=== PATIENT | female | born 1940 | race Caucasian/White ===

== ENCOUNTER 2017-08-10 19:18 | Inpatient (IN) | payer MEDICARE, BC ==
[~2017-08-10] VITALS: Ht 170.2 cm; Wt 77.1 kg
[~2017-08-10 19:18] MED LIST: GLUCOSAMINE1000 MG PO; LEVOTHYROXINE100 MCG PO; LEVOTHYROXINE25 MCG PO; LEXAPRO10 MG PO; MIRAPEX0.75 MG PO; MOBIC7.5 MG PO; MULTI-DAY VITA1 EACH PO; NORCO 5-325 TA1 EACH PO
[2017-08-10] MEDS ORDERED: NORCO 5-325 TA1 EACH PO (20:38)
--- NOTE | 2017-08-10 22:14 | NUR ---
PATIENT ARRIVED TO THE FLOOR VIA STRETCHER. PATIENT TRANSFERRED TO BED ASSISTED BY STAFF. PATIENT TOLERATED ACTIVITY WELL. PATIENT ORIENTED TO UNIT AND FLOOR. PATIENT TAUGHT HOW TO USE CALL LIGHT. PATIENTS SON MIGUEL ASSISTED [facility] AND ADMISSION DATA. PATIENT DENIES ANY PAIN OR NAUSEA AT THIS TIME. PATIENT HOWEVER FALLS ASLEEP VERY EASILY. PATIENT PLACED ON PULSE OX FOR MONITORING. PATIENT DENIES ANY NEEDS. CALL LIGHT IN REACH. SON HAS LEFT FOR THE EVENING.
--- NOTE | 2017-08-10 23:28 | NUR ---
PATIENT IS RESTING IN BED WITH EYES CLOSED. PULSE OX READINGS ARE WNL. CALL LIGHT IN REACH.
--- NOTE | 2017-08-11 00:05 | NUR ---
PT CALLED AND NEEDED TO USE THE BATHROOM, UP WITH 1-PA AND CANE TO [facility]. VOIDED AND THEN RETURNED TO BED WITH ASSISTANCE. PT REPORTS THAT WITH MOVEMENT, PAIN IN LEFT SHOULDER HAS INCREASED TO 7/10, PRN OXYCODONE ADMINISTERED. ICE PACKS PROVIDED FOR COMFORT. PT DENIES FURTHER REQUESTS AT THIS TIME.
--- NOTE | 2017-08-11 00:58 | NUR ---
RECEIVED REPORT FROM SOFTWARE VALIDATION TECHNICIAN AT 0055. FOUND PT IN BED SLEEPING.
--- NOTE | 2017-08-11 01:56 | NUR ---
NETWORKS SOFTWARE CONSULTANT AND I ASSISTED PT TO BSC BECAUSE SHE REFUSED THE BED MOORE. PT IS VERY UNSTADY ON HER FEET AND IS STILL VERY SEDATED. O2 SATS ARE WDL ON ROOM AIR, ALL LOBES ARE CLEAR BUT HER BREATHING IS SHALLOW AT THIS TIME. LEFT RADIAL PULSE IS +2 NO EDEMA NOTED ON LEFT ARM. HOWEVER, VIEW IS OBSTRUCTED BY HER SLING TO SOME EXTENT. PT IS ABLE TO MOVE HER FINGERS. PT NOW IS BACK IN BED SLEEPING. WILL CONTINUE TO MONITOR
--- NOTE | 2017-08-11 02:57 | NUR ---
LR IV FLUIDS ARE STARTED. PT IS SLEEPING AGAIN.
--- NOTE | 2017-08-11 06:30 | NUR ---
PT UPON ARRIVAL WAS VERY DROWSY DUE TO PAIN MEDS GIVEN. PT ALSO HAD LOW URINE OUTPUT WELL. PT RECEIVED AND IS STILL RECEIVEING 1000ML LR AT 100ML/HR. URINE OUTPUT HAS INCREASED SINCE AND PT HAS BECOME MORE ALERT AND ORIENTED. FINGERS ON LEFT ARM ARE WARM TO TOUCH AND RADIAL PULSE IS +2.
--- NOTE | 2017-08-11 07:55 | NUR ---
PT USED BEDSIDE COMMODE, THEN RETURNED TO BE IS NOW RESTING SAFELY WITH CALL LIGHT IN REACH.
--- NOTE | 2017-08-11 08:00 | NUR ---
PATIENT IS AWAKE. ORDERED BREAKFAST. CALLED DR. GEE FOR PAIN CONTROL, PATIENT HAD PAIN MEDICAITON EARLIER THIS MORNING, NEW ORDERED TO ADMINISTERED ANOTHER TAB OF NORCO. DR. GEE NOW IN ROOM ROUNDING.
--- NOTE | 2017-08-11 10:38 | NUR ---
PT IS RESTING IN BED SAFELY WITH CLL LIGHT IN REACH. KNEE HIGH JULIA HOSE WERE PUT ON INSTRUCYED BY THE NURSE. PT ASKED FOR MORE ICE WATER
--- NOTE | 2017-08-11 11:30 | NUR ---
ASSISTED PT TO BEDSIDE COMMODE AND THEN BACK TO BED. PT IS NOW RESTING IN BED SAFELY WITH CALL LIGHT IN REACH.
[2017-08-11] MEDS ORDERED: LEVOXYL137 MCG PO (13:30)
[2017-08-11] MEDS ORDERED: PRAMIPEXOLE DIHY1 MG PO (13:40)
--- NOTE | 2017-08-11 13:44 | NUR ---
PT IS RESTING SAFELY IN BED WITH CALL LGHT IN REACH. PT ASKED FOR ICE WATER
--- NOTE | 2017-08-11 14:00 | NUR ---
PATIENT STAYING FOR PLACEMENT, POSSIBLE TRANSFER TO SWING BED PROGRAM. PATIENT NEEDING ASSIST WITH BATHROOM, UNABLE TO WIPE SELF. VOIDING WELL. PAIN WELL CONTROLLED WITH OXYCODONE 10 MG. PATIENT SON AT BEDSIDE.
[2017-08-11] MEDS ORDERED: LEXAPRO10 MG PO (15:12)
--- NOTE | 2017-08-11 15:13 | NUR ---
MED REC COMPLETE WITH BIMART REFILL HISTORY.
--- NOTE | 2017-08-11 17:00 | NUR ---
ASSISTING PATIENT TO BATHROOM, UNSTEADY ON FEET, 1 PERSON ASSIST WITH CANE. AMBULATED IN HALLS. PATIENT STATES " I AM FEELING BETTER AND STRONGER TONIGHT".
--- NOTE | 2017-08-11 18:24 | NUR ---
PT TRANSFERED FROM CHAIR TO BATHROOM, VIA 1PERSON ASSIST. PT VOIDED AND THEN TRANSFERED TO BED. PT IS NOW RESTING SAFELY WITH CALL LIGHT IN REACH. PT ASKED FOR PAIN MEDS NURSE AWARE
--- NOTE | 2017-08-11 19:20 | NUR ---
BEDSIDE SHIFT REPORT RECEIVED FROM SHERYL TAI. PT IS RESTING IN BED, LEFT ARM IN SLING. PT CURRENTLY HAS VISITORS AT BEDSIDE, NO REQUESTS AT THIS TIME.
--- NOTE | 2017-08-11 21:10 | NUR ---
ASSESSMENT COMPLETED. PT IS ALERT/ORIENTED, REPORTS THAT PAIN IS MINIMAL AT THIS TIME. LUNGS CLEAR, RA. HR REGULAR. BOWEL TONES ACTIVE. CMS INTACT, PT ABLE TO WIGGLE FINGERS OF LEFT HAND, PULSES ARE PALPABLE AND CAP REFILL IS LESS THAN 3 SECONDS. LEFT SHOUDLER IS IMMOBILIZED IN SLING. PT HAS SCATTERED BRUISES FROM PREVIOUS FALL AT HOME.
--- NOTE | 2017-08-11 21:21 | NUR ---
PT REPORTS ITCHING, CALLED AND SPOKE TO DR. GEE WHO STATES HE WILL PUT IN NEW ORDERS. DISCUSSED WITH HIM THAT PT'S IV IS A FIELD START AND NEEDS A NEW IV SITE, THOUGH PT WOULD PREFER NOT TO HAVE A NEW IV STARTED. PER DR. GEE, IT IS OK TO RE-DRESS CURRENT IV AND LEAVE IT IN PLACE.
--- NOTE | 2017-08-11 21:50 | NUR ---
WENT IN TO SEE IF PATIENT WANTED PRN MEDICATION FOR ITCHING, BUT SHE IS SLEEPING AT THIS TIME. WILL CONTINUE TO MONITOR.
--- NOTE | 2017-08-11 23:00 | NUR ---
PT AWAKE WHEN I CHECKED IN, STATES SHE WOULD LIKE SOMETHING TO HELP HER ITCHING, PRN ZYRTEC ADMINISTERED.
--- NOTE | 2017-08-12 00:05 | NUR ---
PT UP TO BSC WITH 1-PA AND CANE. VOIDED AND THEN RETURNED TO BED WITH ASSISTANCE. PT REPORTS THAT WITH MOVEMENT, PAIN IN HER LEFT SHOULDER INCREASED TO 7/10. PRN OXYCODONE ADMINISTERED AND ICE PACKS PROVIDED FOR COMFORT. WILL CONTINUE TO MONITOR.
--- NOTE | 2017-08-12 02:37 | NUR ---
PT SLEEPING, LIGHTLY SNORING. RESPIRATIONS EVEN AND UNLABORED, RR:16. NO APPARENT DISTRESS, WILL CONTINUE TO MONITOR.
--- NOTE | 2017-08-12 03:40 | NUR ---
PT CALLED AND REQUESTED TO USE THE BATHROOM, UP TO [facility] WITH 1-PA AND CANE. VOIDED AND RETURNED TO BED. PT REQUESTS PAIN MEDICATION FOR 7/10 PAIN IN LEFT SHOULDER. PRN OXYCODONE GIVEN. DRESSING TO IV CHANGED, IV FLUSHES WELL. NEW ICE PACKS PLACED ON SHOULDER. PT DENIES FURTHER REQUESTS AT THIS TIME.
--- NOTE | 2017-08-12 05:21 | NUR ---
PT HAS SLEPT OFF AND ON DURING SHIFT. PAIN INCREASES AFTER MOVEMENT/ACTIVITY, SEEMS TO BE FAIRLY WELL CONTROLLED WITH PRN OXYCODONE AND ICE PACKS. ALERT/ORIENTED. LUNGS CLEAR, RA. HR REGULAR. BOWEL TONES ACTIVE, NO NAUSEA. LEFT ARM IMMOBILIZED IN SLING, PT ABLE TO WIGGLE FINGERS. CMS INTACT, GOOD CAP REFILL, EXTREMITIES ARE WARM. UP WITH 1-PA AND CANE TO BSC, PT IS WEAK AND APPEARS UNSTEADY ON FEET. VOIDING QS. IV SL, PATENT, NEW DRESSING TO FIELD START, OK TO LEAVE IN PER DR. GEE. JULIA HOSE IN PLACE. PRN ZYRTEC GIVEN FOR ITCHING, PT STATES THAT ITCHING IS IMPROVING.
--- NOTE | 2017-08-12 08:08 | NUR ---
pt ambulating very slowly from toilet to chair. chair moved closer to bathroom door to allow shorter distance of ambulation. left arm in sling. pt reports pain. oxycodone given with scheduled medications. PRODUCTION POTTER assisted pt with washing hair and bed bath.
--- NOTE | 2017-08-12 09:55 | NUR ---
PT WAS GIVEN A COMPLETE BED BATH WITH JONATHAN CARE AND A SHAMPOO CAP. PT ALSO HAD HANDS ANFACE WASHED WITH A WARM WASH CLOTH.
--- NOTE | 2017-08-12 10:18 | NUR ---
NOTIFIED OF LEAKING IV. AGREEABLE TO LEAVE IV OUT.
--- NOTE | 2017-08-12 11:51 | NUR ---
PT TRANSFERED FROM CHAIR TO BATHROOM VIA 2PERSON ASSIST AND CANE, VOIDED, THEN TRANSFERED TO THE BED. IS NOW RESTING SAFELY WITH CALL LIGHT IN REACH.
--- NOTE | 2017-08-12 14:50 | NUR ---
PT IS RESTNG IN BED WITH CALL LIGHT IN REACH, VISITING WITH FRIEND. PT ASKED FOR MORE ICE WATER
--- NOTE | 2017-08-12 16:33 | NUR ---
took patient to the [facility] (bedside commode), she was moving a bit faster and seemed to be tolerating the transfer better
--- NOTE | 2017-08-12 17:42 | NUR ---
MEDICATION CHANGES TODAY TO KEEP PT FROM BECOMING TOO DROWSY. IMPROVED AMBULATION TO AND FROM BATHROOM-- 1PA WITH CANE. UP IN CHAIR MOST OF DAY. ICE TO LEFT ARM. LEFT ARM IN SLING. LIDOCAINE PATCH ON LEFT ARM. MAY TRANSFER TO SWING BED.
--- NOTE | 2017-08-12 18:39 | NUR ---
PT C/O RESTLESS LEGS AND REQUESTED HOME MEDICATION FOR SYMPTOMS. HOSPITALIST CALLED TO VERIFY EMAR DOSE AND HOME DOSE. OK WITH GIVING PATIENT HER REGULAR HOME DOSE WHILE IN HOSPITAL. PER MEDICATION RECONCILIATION ON HARD CHART AND FAMILY'S RECORDS THE PATIENT'S ORDER FOR MIRAPEX WAS CHANGED TO 2MG TO BE GIVEN AT 1700. 2MG MIRAPEX GIVEN AT 1800. EMAR UPDATED.
--- NOTE | 2017-08-12 18:46 | NUR ---
PT IS SITTING UP ON SIDE OF THE BED EATING PUDDING. FAMILY IS IN THE ROOM
--- NOTE | 2017-08-12 18:59 | NUR ---
FAMILY CAME OUT TO RETRIEVE NURSE. PATIENT FOUND LYING BACK IN BED PERPENDICULAR WITH HOB WITH EYES OPEN. NO BREATHING NOTED. NO PULSE DETECTED. RN CALLED FOR HELP. EMERGENCY BUTTON PUSHED. ADJUSTED PATIENT TO LYING IN BED APPROPRIATELY. CHEST COMPRESSIONS STARTED. PATIENT BEGAN SPEAKING. CHEST COMPRESSIONS STOPPED. PT DISORIENTED. REORIENTED BY STAFF. ABD PADS APPLIED TO CHEST TO MONITOR HEART RHYTHM. PT DIAPHORETIC AND NAUSEOUS. RESPIRATORY THERAPY CALLED FOR ECG. HOSPITALIST CALLED. NO IV ACCESS FOR IV ZOFRAN. HOSPITALIST IN ROOM TO ASSESS PATIENT. ORIENTED X3. REPORTS YEAR 2019. ECG RECEIVED. WILL AWAIT ORDERS FROM
--- NOTE | 2017-08-12 19:17 | NUR ---
PATIENT VISITING WITH FAMILY IN HER ROOM AFTER HAVING A SYCOPAL EPISODE JUST BEFORE CHANGE OF SHIFT. PATIENT HAVING SOME SHOULDER DISCOMFORT AFTER STAFF HAVE BEEN MOVING HER AROUND WITH THE LEFT HUMERUS FRACTURE. PATIENT SHE IS DOING OK NOW, BUT PLACED ON TELE A PRECAUTION.
--- NOTE | 2017-08-12 20:00 | NUR ---
PATIENT STILL VISITING WITH FAMILY.
--- NOTE | 2017-08-12 22:00 | NUR ---
PATIENT IS RESTING QUIETLY NOW, EYES CLOSED, RESPIRATIONS REGULAR AND EVEN, AND O2 SATS ARE GOOD. PAIN APPEARS TO BE GONE SHE NOW APPEARS TO BE SLEEPING.
--- NOTE | 2017-08-13 | NUR ---
PATIENT RESTING IN BED, SUPINE, EYES CLOSED, AND RESPIRATIONS 18.
--- NOTE | 2017-08-13 01:15 | NUR ---
PATIENT JUST HELPED BACK TO BED BY KEVIN THE CHARGE NURSE AFTER USING THE BATHROOM.
--- NOTE | 2017-08-13 02:00 | NUR ---
PATIENT CONTINUES TO BE RESTING CALMLY AND HER EYES ARE CLOSED, SATS ARE WNL, AND RESPIRATIONS ARE REGULAR AND EVEN.
--- NOTE | 2017-08-13 03:55 | NUR ---
PATIENT CONTINUE TO REST QUIETLY FOR THE TIME BEING EYES CLOSED. RESPIRATION EVEN AND SATS GOOD.
--- NOTE | 2017-08-13 06:05 | NUR ---
PATIENT HAD A GOOD NIGHT, NOT MUCH PAIN LONG THE PATIENT WAS IN BED SHE DID GET SOME MORE TYLENOL AND CODIENE 0546 FOR PAIN OF 6/10 IN HER LEFT ARM. SHE IS RESTING QUIETLY WATCHING TV AT THIS TIME.
--- NOTE | 2017-08-13 07:32 | NUR ---
RECIEVED BEDSIDE REPORT FROM SHERYL HUERTA. PT IS AWAKE AND ALERT IN BED. NO COMPLAINTS AT THIS TIME.
--- NOTE | 2017-08-13 08:13 | NUR ---
SLID PATIENT UP IN BED AND ELEVATED HEAD OF BED TO PREPARE FOR BREAKFAST. WHITEBOARD UPDATED, ROOM TIDIED. WILL RECHECK ON PATIENT AFTER BREAKFAST.
--- NOTE | 2017-08-13 08:56 | NUR ---
ASSISTED PT TO THE BSC. PT MOVED WELL, WITH CARE TO LEFT SHOULDER. PT IS HAPPY WITH CARE RECIEVED IN THE HOSPITAL.
--- NOTE | 2017-08-13 10:30 | NUR ---
ASSIST TO BSC. PT MOVING BETTER, LESS COMPLAINTS OF PAIN.
--- NOTE | 2017-08-13 10:39 | NUR ---
REFUSED SHOWER/BEDBATH. WILL RECHECK LATER. DID DO AM CARE THOUGH, INLCUDING WASHING FACE WITH WASHCLOTH, ORAL CARE, AND DEODORANT.
--- NOTE | 2017-08-13 11:24 | NUR ---
PATIENT IN BED DOING WELL.
--- NOTE | 2017-08-13 11:36 | NUR ---
DISCONTINUED TELE AND PULSE OX.
--- NOTE | 2017-08-13 13:16 | NUR ---
PT ON BSC AFTER SUPPOSITORY.
--- NOTE | 2017-08-13 13:33 | NUR ---
SUPPOSITORY WAS NOT EFFECTIVE. PT BACK IN BED.
--- NOTE | 2017-08-13 16:41 | NUR ---
PT HAD SOAP CHRISTY ENEMA. DIFFICULT TO ADVANCE TUBING, BUT DID PRODUCE MEDIUM BM. BM WAS VERY HARD AND LUMPY. PT FEELS THAT SHE HAS NOT COMPLETELY CLEARED HER BOWELS, BUT FEELS BETTER. BED LINENS CHANGED, FAMILY IN ROOM AT THIS TIME.
--- NOTE | 2017-08-13 18:32 | NUR ---
PT HAD SUPPOSITORY AND ENEMA THIS SHIFT, WITH MODERATE RESULTS. STOOL IS HARD AND PT FEELS SHE HAS MORE TO COME. MIRALAX STARTED. NO C/O DIZZINESS, TELE D/C. IV FLUIDS D/C. PULSE OX D/C. PT UP TO [facility] AND BSC.
--- NOTE | 2017-08-13 19:15 | NUR ---
PATIENT VISITING WITH FAMILY IN HER ROOM, GETTING REPORT FROM DAYSHIFT.
--- NOTE | 2017-08-13 20:00 | NUR ---
PATIENT CONTINUES TO VISIT WITH FAMILY AND WATCH TV.
--- NOTE | 2017-08-13 22:00 | NUR ---
PATIENT RESTING QUIETLY, EYES CLOSED, RESPIRATIONS EQUAL AND REGULAR.
--- NOTE | 2017-08-14 | NUR ---
PATIENT RESTING QUIETLY. EYES CLOSED. RESPIRATIONS REGULAR AND EVEN. CALL LIGHT WITHIN REACH. WILL CONTINUE TO MONITOR.
--- NOTE | 2017-08-14 00:23 | NUR ---
ASSISTED PATIENT UP TO BATHROOM USING IPA/NON-SLIP SOCKS/CANE. SHE TOLERATED WELL, DENYING PAIN. PATIENT IS NOW RESTING COMFORTABLY IN BED, FRESH WATER GIVEN. DENIES OTHER NEEDS AT THIS TIME. CALL LIGHT WITHIN REACH.
--- NOTE | 2017-08-14 02:00 | NUR ---
PATIENT STILL RESTING QUIETLY WITH EYES CLOSED AND RESPIRATIONS REGULAR AND EVEN.
--- NOTE | 2017-08-14 04:55 | NUR ---
PATIENT HAVING PAIN 8/10 IN HER LEFT SHOULDER AFTER GETTING UP TO THE COMMODE. 650MG OF PO TYLEOL GIVEN WELL 300/30 TYLENOL AND CODIENE GIVEN.
--- NOTE | 2017-08-14 06:45 | NUR ---
PATIENT SLEPT WELL MOST OF THE NIGHT OTHER THAN GETTING SOME PAIN FROM GETTING UP TO THE COMMODE WHICH WAS RELEIVED BY PAIN MEDICATION. RT SLIV PATENT. VITALS HAVE BEEN STABLE, PATIENT MAY GO SWING BED TODAY. JUST FINISHED WASHING PATIENT'S HAIR SHE IS GETTING READY FOR MORNING VISITORS.
--- NOTE | 2017-08-14 07:04 | NUR ---
RECIEVED BEDSIDE REPORT FROM SHERYL HUERTA. PT IS AWAKE AND ALERT. NOC SHIFT WASHED PT HAIR, SHE IS WAITING FOR HER GRANDDAUGHTER TO BRING IN HER HAIR CARE SUPPLIES. PT REPORTS A GOOD NIGHT, SLEEPT WELL.
--- NOTE | 2017-08-14 07:35 | NUR ---
PATIENT SITTTING UP IN BED. HANDS AND FACE WASHED. BREAKFAST SET UP. FRESH ICE WATER GIVEN. CALL BUTTON IN REACH. NO OTHER NEEDS AT THIS TIME.
--- NOTE | 2017-08-14 14:22 | EKG ---
[facility] [address] [place] [address] Signed Sinus rhythm with premature atrial complexes Otherwise normal ECG No previous ECGs available Confirmed by CHEMO GEE MD ([id number]) on 08/14/2017 2:22:39 PM Electronically Signed By: CHEMO GEE MD 08/14/17 1422 PATIENT NAME: JA MAURICIO Electrocardiogram DATE OF : 36 PHYSICIAN: CHEMO GEE MD REPORT #: [id number] REPORT IS CONFIDENTIAL AND NOT TO BE RELEASED WITHOUT AUTHORIZATION
== END 2017-08-14 09:30 | disposition swing bed (61) | DRG 563 ==
LOC: ED 19:18 → MS 21:24
PROVIDERS: ADMIT Internal Medicine
PROC: 3E0234Z Introduction of Serum, Toxoid and Vaccine into Muscle, Percutaneous Approach (ICD-10-PCS; principal; 2017-08-12)
DX: S42.292A Other displaced fracture of upper end of left humerus, initial encounter for closed fracture (principal); W01.0XXA Fall on same level from slipping, tripping and stumbling without subsequent striking against object, initial encounter; R55 Syncope and collapse; T40.2X5A Adverse effect of other opioids, initial encounter; R26.2 Difficulty in walking, not elsewhere classified; E03.9 Hypothyroidism, unspecified; G25.81 Restless legs syndrome; F41.9 Anxiety disorder, unspecified; Z88.5 Allergy status to narcotic agent; Z90.710 Acquired absence of both cervix and uterus; Z91.81 History of falling; Z23 Encounter for immunization
CPT/HCPCS: 51701; 73030; 73060; 80053; 81001; 83735; 85025; 90662; 93005; 93010; 94762; 97110; 97116; 97163; 97165; 97530; G0008; G8978; G8979; G8987; G8988; J1170; J1650; J2405; J2550; J7120

== ENCOUNTER 2017-08-14 09:30 | Inpatient (IN) | payer MEDICARE, BC ==
[~2017-08-14] VITALS: Ht 177.8 cm; Wt 57.6 kg
[~2017-08-14 09:30] MED LIST changes: +LEVOXYL137 MCG PO; +PRAMIPEXOLE DIHY1 MG PO
--- NOTE | 2017-08-14 10:43 | NUR ---
one person assist with cane from bed to bathroom and back to chair. oral care done. fresh ice water and ice pack given. warm blanket given. call button in reach. no other needs at this time.
--- NOTE | 2017-08-14 11:04 | NUR ---
PT TRANSFERED TO SWING BED STATUS. ASSESSMENT AND ADMISSION DONE FOR SWING BED. PT WORKING WITH PHYSICAL THERAPY. PHYSICAL THERAPY CHANGED SLING/IMMOBILIZER TO ONE WITH WITH MORE SUPPORT. PT UP AMBULATING IN THE RIOS WITH PHYSICAL THERAPY AND A 4-FOOT CANE. PT TOLERATED WELL. PT REPORTED 7/10 PAIN PRIOR TO PHYSICAL THERAPY. PRN TYLENOL WITH CODINE GIVEN. NO REPORTS OF NAUSEA, DIZZINESS. VOIDING WELL. NO BM YET THIS SHIFT. TOLERATING REG DIET WELL.
--- NOTE | 2017-08-14 13:00 | NUR ---
PATIENT RESTING IN BED WITH EYES CLOSED. NO SHOWER. WILL SHOWER ONCE SHE AWAKES.
--- NOTE | 2017-08-14 16:00 | NUR ---
ONE PERSON ASSIST PATIENT WITH SHOWER. JONATHAN CARE DONE. HAIR SHAMPOOED. PATIENT BACK TO CHAIR. WITH FEET ELEVATED. CALL BUTTON IN REACH. ICE PACK ON SHOULDER. FRESH ICE WATER GIVEN. PATIENT STATES THAT SHE IS IN 7 OUT OF 10 PAIN. RN NOTIFIED. MERLYN IN ROOM. NO OTHER NEEDS AT THIS TIME.
--- NOTE | 2017-08-14 18:35 | NUR ---
PT TRANSITIONED TO SWING BED THIS SHIFT. PT UP TO SHOWER, FAMILY IN TO VISIT. PT WORKED WITH PHYSICAL THERAPY. DIFFERENT SLING IS PROVIDING BETTER SUPPORT FOR LEFT SHOULDER. PRN T3 GIVEN X2, ROUTINE TYLENOL ROUND THE CLOCK. VOIDING WELL.
--- NOTE | 2017-08-14 19:25 | NUR ---
PT SITTING UP IN RECLINER VISITING WITH FAMILY. PATIENT LOOKS LIKE SHE HAS BEEN MUCH MORE ACTIVE TODAY. SHOWERED AND GOT HER HAIR DONE. DIE POLISHER EQUAL. NO PAIN IN LT SHOULDER AT THIS TIME. SLIV FLUSHES WELL. EQUAL STRENGTH IN LEGS. WILL CONTINUE TO MONITOR. CALL LIGHT IN REACH.
--- NOTE | 2017-08-14 20:06 | NUR ---
PATIENT UP WALKING IN THE HALLWAY WITH STANDBY ASSIST OF CHARGE NURSE AND CANE.
--- NOTE | 2017-08-14 22:00 | NUR ---
PATIENT SITTING ON BEDSIDE WATCHING TV. T3# AND TYLENOL GIVEN FOR 4/10 SHOULDER PAIN AND 2MG OF MIRAPEX FOR RESTLESS LEG SYNDROME.
--- NOTE | 2017-08-14 22:35 | NUR ---
ASSISTED PATIENT FROM BATHROOM BACK TO BED USING CANE. ICE WATER REFIILED.
--- NOTE | 2017-08-14 23:55 | NUR ---
PT RESTING QUIETLY, EYES CLOSED, RR=18, CALL LIGHT IN REACH, WILL CONTINUE TO MONITOR.
--- NOTE | 2017-08-15 02:00 | NUR ---
PATIENT RESTING QUIETLY, EYES CLOSED, RESPIRATIONS EVEN AT RATE OF 18 WITH SMALL AMOUNT OF SNORING. CALL LIGHT IN REACH. WILL CONTINUE TO MONITOR.
--- NOTE | 2017-08-15 04:00 | NUR ---
PATIENT RESTING QUIETLY, EYES CLOSED, RR=18, CALL LIGHT WITHIN REACH. WILL CONTINUE TO MONITOR.
--- NOTE | 2017-08-15 04:03 | NUR ---
ASSISTED PATIENT TO THE TOILET AND BACK TO BED, PATIENT USING CANE. CALL LIGHT WITHIN REACH.
--- NOTE | 2017-08-15 05:57 | NUR ---
PATIENT UP TO THE BATHROOM WITH ONE PERSON STANDBY ASSIST AND QUAD BILLINGS. PATIENT SLEPT WELL, NO COMPLAINTS. SLIV FLUSHES WELL. WILL CONTINUE TO MONITOR.
--- NOTE | 2017-08-15 07:00 | NUR ---
PT WAS SITTING IN THE CHAIR, ENTERTAINING VISITORS. SHE IS ALERT, ORIENTED AND VERY PLEASANT UNDER THE CIRCUMSTANCES. MUCH OF THE BRIEF VISIT CENTERED AROUND HER SON MIGUEL THAT HAPPENS TO BE MY NEIGHBOR. I EXTENDED A BLESSING TO HER AND WILL CONTINUE TO FOLLOW
--- NOTE | 2017-08-15 07:30 | NUR ---
PATIENT MOVED FROM BED TO CHAIR WITH ONE PERSON ASSIST WITH CANE. HANDS AND FACE WASHED. PATIENT STATES SHE HAS 8 OUT OF 10 PAIN. NURSE NOTIFIED. FRESH ICE WATER GIVEN. ICE PACK ON LEFT SHOULDER. WARM BLANKET GIVEN. CALL BUTTON IN REACH. NO OTHER NEEDS AT THIS TIME.
--- NOTE | 2017-08-15 07:44 | NUR ---
REPORT RECIEVED FROM SHERYL HUERTA. PT SITTING UP IN BED AND REPORTS SOME MILD NAUSEA. CALLD A FEW MINUTES LATER TO REPORT PAIN. ADMINISTERED ZOFRAN, TYLENOL 3 AND CRACKERS.
--- NOTE | 2017-08-15 10:30 | NUR ---
ASSISTED PATIENT WITH BED BATH. ORAL CARE DONE. ASSISTED PATIENT WITH DRESSING IN CLOTHES FROM HOME. FRESH ICE WATER GIVEN. PATIENT BACK TO BED. CALL BUTTON IN REACH. NO OTHER NEEDS AT THIS TIME.
--- NOTE | 2017-08-15 11:15 | NUR ---
PT WALKING IN RIOS WITH PHYS. THER. APPEARS TO BE TOLERATING WELL.
--- NOTE | 2017-08-15 13:00 | NUR ---
PT CALLED TO ASK FOR PAIN MEDICATION. IN BATHROOM WITH RN. ABLE TO PULL UP PANTS ON OWN NOW. RATES PAIN 5/10
--- NOTE | 2017-08-15 14:20 | NUR ---
PT WAS LAYING IN BED, RESTING. SHE HAS BEEN WITH P.T. AND OTHER SPECIALISTS. SHE WAS ALERT AND ORIENTED, AND SEEMED TO ENJOY SOME COMPANY. PT REQUESTED PRAYER, WILL CONTINUE TO FOLLOW NEEDED
--- NOTE | 2017-08-15 14:20 | NUR ---
FINGER COBBLER IN TO TAKE PATIENTS MEAL ORDERS. PATIENT KEPT ON LOOSING TRAIN OF THOUGHT AND ASKED KEPT ON REPEATING THE SAME QUESTIONS TO THE SOLID WASTE DISPOSAL MANAGER. PATIENT COMPLAINS OF BE EXTRA SLEEPY TODAY.
--- NOTE | 2017-08-15 14:25 | NUR ---
PATIENT TO BATHROOM ONE PERSON ASSIST WITH CANE.
--- NOTE | 2017-08-15 14:35 | NUR ---
WHILE THIS SERVICE DESK TEAM LEAD WAS ASSISTING PATIENT FROM BATHROOM TO BED THE PATIENT COMPLAINED OF BEING DIZZY AND LEANED TO THE LEFT SIDE THIS SERVICE DESK TEAM LEAD PULLED HER THE OPPOSIT DIRECTION. HAD PATIENT SIT DOWN. TOOK THE PATIENTS BP. PATIENT WAS AFRAID SHE WOULD FALL OVER WHILE WALKING TO BED. CALLED FOR A SECOND PERSON TO ASSIST PATIENT BACK TO BED. CALL BUTTON IN REACH. FRESH ICE WATER GIVEN. NO OTHER NEEDS AT THIS TIME. RN WAS NOTIFIED.
--- NOTE | 2017-08-15 15:35 | NUR ---
PT UP WALKING WITH PHYS. THER. APPEARS TO BE DOING WELL. OCCASIONALLY LISTS TO THE SIDE.
--- NOTE | 2017-08-15 16:00 | NUR ---
ONE PERSON ASSIST WITH CANE TO BATHROOM AND BACK TO CHAIR. CALL BUTTON IN REACH. NO OTHER NEEDS AT THIS TIME.
--- NOTE | 2017-08-15 16:02 | NUR ---
PT UP TO THE RESTROOM AGAIN. ADMINISTERED SCHED. TYLENOL. PT APPEARS MORE STABLE AND AWAKE AFTER TYLENOL 3 HAS WORN OFF A LITTLE.
--- NOTE | 2017-08-15 17:39 | NUR ---
PT WORKED WITH PHYS. THER. X2. [employer]YBE[employer] SPECIALTIES COOK. ABLE TO PULL UP PANTS NOW UNASSISTED. DROWSY WITH TYLENOL 3. LUNGS CLEAR. UO QS. USES 4 POD CANE. GOOD APPETITE. FAMILY IN AND OUT ALL DAY.
--- NOTE | 2017-08-15 20:10 | NUR ---
ASSISTED THE PATIENT CHANGED DAY CLOTHES TO NIGHT GOWN. USED THE BATHROOM, PM CARE DONE AND BACK TO BED. CALL LIGHT WITHIN REACH.
--- NOTE | 2017-08-15 20:10 | NUR ---
PT SITTING UP IN CHAIR, VISITING WITH SON AND GRANDSON. PT PLEASENT. NO APPARENT DISTRESS. NO NEEDS AT THIS TIME. CALL LIGHT IN REACH.
--- NOTE | 2017-08-16 00:54 | NUR ---
PATIENT CALLED TO USE THE TOILET. PATIENT USE CANE. PATIENT IS BACK IN BED. ICE WATER REFILLED. CALL LIGHT WITHIN REACH.
--- NOTE | 2017-08-16 01:01 | NUR ---
PT HAS BEEN UP SEVERAL TIMES TONIGHT TO USE RESTROOM TO VOID. NOW PT IS IN BED, APPEARS TO BE SLEEPING. RR WNL AND UNLABORED. CALL LIGHT IN REACH.
--- NOTE | 2017-08-16 04:35 | NUR ---
ASSISTED PATIENT FROM BATHROOM TO BED. CALL LIGHT IS WITHIN REACH.
--- NOTE | 2017-08-16 04:36 | NUR ---
pt up to restroom to void. back in bed. rates pain in left shoulder at "6-7"/10. gave tylenol III for pain. gave cracker per request. fresh ice water at bedside. call light in reach.
--- NOTE | 2017-08-16 05:14 | NUR ---
PT SLEPT MAJORITY OF SHIFT. USED CALL LIGHT APPROPRIATLY. PRN TYLENOL III GIVEN X1 FOR PAIN. LEFT ARM IN SLING. 1 PERSON ASSIST WITH CANE, PT SLOW BUT STEADY. ALERT AND ORIENTED X4. PLEASENT.
--- NOTE | 2017-08-16 07:02 | NUR ---
ASSISTED PATIENT TO THE BATHROOM USING CANE. PATIENT IS UP IN THE CHAIR. CALL LIGHT WITHIN REACH.
--- NOTE | 2017-08-16 07:15 | NUR ---
REPORT RECIEVED FROM SHERYL FRANCIS. PT APPEARS TO BE SLEEPING. SLEPT MOST OF NIGHT BUT REPORTED SOME NAUSEA EARLIER THIS MORNING.
--- NOTE | 2017-08-16 08:03 | NUR ---
PT SITTING UP IN CHAIR EATING BREAKFAST. STATES SHE IS STILL A LITTLE NAUSEOUS AND WOULD LIKE TO WAIT AWHILE FOR HER MORNING PILLS.
--- NOTE | 2017-08-16 09:40 | NUR ---
OT ASSISTING PATIENT WITH SHOWER. ORAL CARE DONE.
--- NOTE | 2017-08-16 10:38 | NUR ---
PT SITTING UP IN CHAIR. STATES TODAY LONG SHE ISNT MOVING SHE FEELS PRETTY GOOD.
--- NOTE | 2017-08-16 10:40 | NUR ---
PATIENT SITTING IN CHAIR. THIS CUT PRESSMAN ASSISTED PATIENT WITH HER HAIR. CALL BUTTON IN REACH. FRESH ICE WATER GIVEN. NO OTHER NEEDS AT THIS TIME.
--- NOTE | 2017-08-16 12:00 | NUR ---
PT IN CHAIR WAITING FOR LUNCH.
--- NOTE | 2017-08-16 13:13 | NUR ---
PT IN WHEELCHAIR GOING DOWNSTAIRS FOR LUNCH WITH SONVirginia SOMMER TOLD HER A COUPLE DAYS AGO THAT SHE COULD GO DOWNSTAIRS BUT NOT OFF CAMPUS. PT VERBALIZED TO THIS RN SHE WOULD JUST GO DOWNSTAIRS AND STAY IN THE WHEELCHAIR SHE JUST HAD TYLENOL 3.
--- NOTE | 2017-08-16 18:21 | NUR ---
PT WORKED WITH [employer]EL[employer] X2 TODAY. TOLERATED WELL. WENT DOWNSTAIRS WITH SON FOR LUNCH. TYLENOL FOR PAIN. MOVED TO VIEW ROOM, DOING MUCH BETTER. CMS INTACT.
--- NOTE | 2017-08-16 18:23 | NUR ---
PATIENT RESTING IN CHAIR WITH FEET ELEVATED WATCHING TV. CALL BUTTON IN REACH. FRESH ICE WATER GIVEN. NO OTHER NEEDS AT THIS TIME.
--- NOTE | 2017-08-16 19:05 | NUR ---
BEDSIDE SHIFT REPORT RECEIVED FROM SHERYL AHUJA. PT IS ALERT, SITTING UP IN CHAIR, VISITORS AT BEDSIDE. CALL LIGHT IS WITHIN REACH, DENIES NEEDS AT THIS TIME. WILL CONTINUE TO MONITOR.
--- NOTE | 2017-08-16 20:00 | NUR ---
ASSESSMENT COMPLETED. PT IS ALERT/ORIENTED. REPORTS 8/10 PAIN IN LEFT SHOULDER. SCHEDULED TYLENOL GIVEN, NEW ICE PACK IN PLACE. LUNGS CLEAR, RA. HR REGULAR. BOWEL TONES ACTIVE, DENIES NAUSEA. LEFT ARM IN SLING, WIGGLES FINGERS, EXTREMITIES WARM, GOOD CAP REFILL. DENIES NUMBNESS, TINGLING IN EXTREMITIES. BRUISES NOTED TO LEFT EYE, LEFT ARM, AND LEGS, ALL APPEAR TO BE FADING. IV WAS NO LONGER PATENT, D/C'D WNL, PT TOLERATED WELL. PT UP TO BATHROOM WITH 1-PA AND CANE, CHANGED INTO GOWN AND THEN INTO BED. DENIES FUTTHER REQESTS AT THIS TIME, CALL LIGHT IS WITHIN REACH. WILL CONTINUE TO MONITOR.
--- NOTE | 2017-08-16 21:38 | NUR ---
WENT IN TO ASSESS PT'S PAIN, PT APPEARS TO BE SLEEPING AT THIS TIME, NO APPARENT DISTRESS. RESPIRATIONS ARE EVEN AND UNLABORED, RR:16. WILL CONTINUE TO MONITOR.
--- NOTE | 2017-08-17 01:26 | NUR ---
PT UP TO BATHROOM WITH SBA AND CANE, VOIDED, AND THEN RETURNED TO BED. PT REPORTS 8/10 PAIN IN LEFT ARM, PRN TYLENOL #3 GIVEN. FRESH ICE WATER PROVIDED. PT DENIES FURTHER REQUESTS AT THIS TIME.
--- NOTE | 2017-08-17 03:47 | NUR ---
PT CALLED TO USE THE BATHROOM, UP WITH SBA, VOIDED AND THEN RETURNED TO BED. STATES THAT HER PAIN IS BETTER SINCE RECEIVING PAIN MEDICATION. DENIES FURTHER REQUESTS AT THIS TIME.
--- NOTE | 2017-08-17 05:02 | NUR ---
SWING BED. PT SLEPT WELL. PAIN WELL CONTROLLED WITH SCHEDULED TYLENOL AND PRN TYLENOL #3, GIVEN ONCE. NO NAUSEA. LEFT ARM IMMOBILIZED IN SLING, WIGGLES FINGERS, EXTREMITIES WARM WITH GOOD CAP REFILL, CMS INTACT. 1-PA WITH CANE TO BATHROOM, SLIGHTLY UNSTEADY ON FEET. IV WAS NO LONGER PATENT, REMOVED WNL.
--- NOTE | 2017-08-17 08:00 | NUR ---
PATIENT UP TO RECLINER, ADMINISTERED TYLENOL3 FOR PAIN CONTROL 9/10 ON PAIN SCALE. PATIENT NOW EATING BREAKFAST, ASSISTED WITH SETTING UP.FULL BODY ASSESMENT DONE.
--- NOTE | 2017-08-17 12:40 | NUR ---
PT RESTING IN BED. SHE MENTIONED THAT P.T. PUT HER THROUGH THE PACES IN HER WORDS THIS MORNING. SHE WANTED TO GIVE HERSELF PERMISSION TO TAKE A MORNING NAP. EXTENDED A BLESSING, WILL LET HER REST AND FOLLOW NEEDED
--- NOTE | 2017-08-17 13:00 | NUR ---
PATIENT IN ROOM WITH FAMILY, APPEARS TO CONVERSING EASILY,.PAIN WELL CONTROLLED IN SHOULDER. PROVIDED PATIENT WITH WARM BLANKET AND SNACK.
--- NOTE | 2017-08-17 14:53 | NUR ---
PT IS CURRENTLY WORKING WITH PHYSICAL THERAPY
--- NOTE | 2017-08-17 17:40 | NUR ---
PT IS SITTING UP IN CHAIR WITH CALL LIGHT IN REACH, EATING HER BREAKFAST.
--- NOTE | 2017-08-17 19:05 | NUR ---
PATIENT RESTING IN RECLINER. FAMILY BEDSIDE. SHIFT REPORT RECIEVED.
--- NOTE | 2017-08-17 20:05 | NUR ---
EVENING MEDS PROVIDED. PATIENT ASSISTED TO THE BATHROOM, SBA W/CANE. PATIENT STEADY ON HER FEET. REPORTS PAIN 5/10, SCHEDULED PAIN MEDS GIVEN. PATIENT BACK IN RECLINER WITH CALL LIGHT IN REACH.
--- NOTE | 2017-08-17 22:19 | NUR ---
ROUNDED ON PATIENT. PATIENT DENIES ANY COMMENTS OR CONCERNS. ALL QUESTIONS ANSWERED. NO NEEDS AT THIS TIME. CALL LIGHT IN REACH.
--- NOTE | 2017-08-18 00:58 | NUR ---
PATIENT RESTING IN BED. REPORTS PAIN IS WELL CONTROLLED. DENIES NEEDS AT THIS TIME. CALL LIGHT IN REACH.
--- NOTE | 2017-08-18 01:30 | NUR ---
PATIENT REQUESTED PRN PAIN MEDS FOR 10/10 PAIN, MEDS ADMINISTERED PER ORDERS. PATIENT HAS QUESTIONS ABOUT HER PLAN OF CARE, DISCUSSED SWING BED AND PT/OT PLAN WITH PATIENT. PATIENT EXPRESSED UNDERSTANDING, BUT REPORTS FEELING ANXIOUS ABOUT PLAN OF CARE AND IS UNABLE TO SLEEP. AMBULATED PATIENT IN THE HALLWAY. PATIENT REPORTS FEELING LESS ANXIOUS AND WANTS TO TRY TO SLEEP. ASSISTED PATIENT TO THE BATHROOM AND THEN BACK TO BED. ICE PACKS APPLIED TO PATIENTS LEFT ARM. CALL LIGHT IN REACH.
--- NOTE | 2017-08-18 03:48 | NUR ---
PATIENT REPORTING PAIN IN HER LEFT SHOULDER. REPOSITIONED PATIENT AND APPLIED ICE PACKS X2. PATIENT REPORTS FEELING SOME RELIEF. STATES IT IS MORE OF A CRAMP FEELINGS. WILL CONTINUE TO MONITOR.
--- NOTE | 2017-08-18 04:46 | NUR ---
PATIENT REPORTING 10/10 PAIN. PATIENT DOES NOT APPEAR TO BE IN DISTRESS. PATIENT HAS NOT SLEPT. ASSITED HER TO THE BATHROOM. PATIENT SITTING IN RECLINER WITH ICE PACKS X2. RIGHT ARM POSITIONED ON A PILLOW FOR COMFORT. WILL CONTINUE TO MONITOR.
--- NOTE | 2017-08-18 05:06 | NUR ---
PATIENT RESTING IN RECLINER, APPEARS TO BE SLEEPING. EYES CLOSED. RR15. CALL LIGHT IN REACH.
--- NOTE | 2017-08-18 06:22 | NUR ---
DISCUSSED PATIENTS PAIN CONTROL ISSUE WITH MD THIS MORNING AND ASKED TO CLARIFY THE ORDERS FOR THE SLING THAT IS IN PLACE ON THE LEFT ARM. NO NEW ORDERS AT THIS TIME. MD WILL REVIEW AND INFORM DAYSHIFT OF NEW ORDERS IF ANY. PATIENT UP TO THE BATHROOM WITH SHERYL RAMIREZ, REPORTED 6/10 PAIN. STATES IT IS BETTER THIS MORNING BUT STILL NOT A COMFORTABLE LEVEL.
--- NOTE | 2017-08-18 06:32 | NUR ---
PATIENT DID NOT REST VERY MUCH DURING THE NIGHT. PAIN NOT WELL CONTROLLED. MD AWARE. PATIENT IS AAOX3. USES CALL LIGHT APPROPRIATELY. 1PA W/CANE. TOLERATING REGULAR DIET. ICE IN PLACE ON LEFT ARM, SLING IN PLACE.
--- NOTE | 2017-08-18 07:36 | NUR ---
BEDSIDE REPORT RECEIVED FROM SHERYL MOONEY. PT IS SLEEPING AT THIS TIME. WILL CONTINUE TO MONITOR.
--- NOTE | 2017-08-18 08:12 | NUR ---
ASSISTED PT FROM BED TO CHAIR W CANE AND SBA. PT STATING PAIN IS 7/10 IN LEFT SHOULDER. ADMINISTERED PRN TYLENOL, PT REQUESTING TO WAIT FOR LIDOCAINE, WOULD LIKE TO SHOWER. PT EATING BREAKFAST. PT BROUGHT ICE WATER, JUICE. CALL LIGHT IN REACH.
--- NOTE | 2017-08-18 09:25 | NUR ---
TOOK A SHOWER DID MOST OF IT. CHANGED LINEN AND HELPED HER GET DRESSED. OCCUPATIONAL THERAPY IS WORKING WITH HER RIGHT NOW.
--- NOTE | 2017-08-18 11:39 | NUR ---
IMAGING IN ROOM FOR X-RAY OF SHOULDER.
--- NOTE | 2017-08-18 11:59 | NUR ---
PT ASSESSMENT COMPLETE. PT ALERT, ORIENTED X3. PT LUNGS CLEAR. PT HAS STRONG PULSES BILATERALLY UPPER AND LOWER EXTREMITIES. PT DENIES NAUSEA. PT STATES PAIN IS 2/10 AT THIS TIME, LIDOCAINE PATCH ON SHOULDER. PT UP IN CHAIR AT THIS TIME, LUNCH ON TABLE. CALL LIGHT IN REACH.
--- NOTE | 2017-08-18 13:55 | NUR ---
CHECKED ON PT. PT STATING SHE IS HAVING 4/10 "ACHING PAIN". PT HAS ICE ON SHOULDER, IN SLING. ADMINISTERED PRN ACETAMINOPHEN WITH COEDINE. PT SITTING ON COUCH READING BOOK. ASSISTED PT TO MOVE BACK TO BED. CALL LIGHT IN REACH. NO ADDITIONAL REQUESTS.
--- NOTE | 2017-08-18 15:26 | NUR ---
ASSISTED PT TO RESTROOM. PT HAD SMALL BM, UNMEASURED VOID. PT AMBULATED WITH CANE. PT STATES PAIN WITH MOVEMENT IN LEFT SHOULDER 6-7, 4/10 WHILE LYING IN BED. ADMINISTERED THE PRN TYLENOL 650 MG. PT HAS ICE ON SHOULDER, LEFT ARM IN SLING ON PILLOW. PT HAS CALL LIGHT IN REACH.
--- NOTE | 2017-08-18 16:04 | NUR ---
PATIENT C/O RESTLESS LEGS. REQUESTING MERIPEX. CALLED FOR OKAY FROM DR. SAM TO GIVEN NOW. PATIENT ASSISTED TO THE BR AFTER RECIEVING MEDICATION.
--- NOTE | 2017-08-18 18:00 | NUR ---
ANSWERED PT CALL LIGHT. PT STANDING AT BEDSIDE WHEN ARRIVED TO ROOM. EDUCATED PT ON SAFETY, TO WAIT FOR ASSISTANCE W AMBULATION. PT ASSISTED TO CHAIR, GAVE PT NEW ICE PACKS. PT STATES PAIN IS 7/10 WITH MOVEMENT IN LEFT SHOULDER/ARM. PT STATES "ICE HELPS". INFORMED PT ON PRN MEDICATIONS AND WHEN NEXT MED AVAILABLE. PT PERSONAL BELONGINS, CALL LIGHT WITHIN REACH.
--- NOTE | 2017-08-18 18:51 | NUR ---
PT HAD X-RAY OF LEFT SHOULDER REPEATED TODAY PAIN HAS PERSISTED FOR A WEEK. PT HAS HAD ICE ON SHOULDER AND CONTINUED TO COMPLAIN OF PAIN. PT RECEIVED ACETAMINOPHEN WITH CODEINE X 1 THIS SHIFT AND SCHEDULED ACETAMINOPHEN X 2. PT HAS LIDOCAINE PATCH IN PLACE. PT SBA WITH CANE. WORKED WITH PT AND OT TODAY.
--- NOTE | 2017-08-18 19:20 | NUR ---
REPORT RECVD FROM GINO SAUCEDO. PT UP SLEEPING IN CHAIR. PT REQUEST GOING BACK TO BED. RETIREMENT MANAGER IN ROOM TO HELP. NO FURTHER NEEDS AT THIS TIME. CALL LIGHT IN REACH.
--- NOTE | 2017-08-18 20:00 | NUR ---
IN TO SEE PT, PT REQUESTING PM MEDICATIONS. PM MEDICATIONS GIVEN. MELATONIN REFUSED, PT STATES SHE DOES NOT NEED IT. PT STATES "I AM VERY TIRED TONIGHT." ASSESSMENT COMPLETE. ICE PLACES TO L SHOULDER. NO FURTHER NEEDS AT THIS TIME,CALL LIGHT IN REACH.
--- NOTE | 2017-08-18 21:54 | NUR ---
PATIENT TUCKED INTO BED. DOES NOT NEED ANYTHING AT THIS TIME.
--- NOTE | 2017-08-18 22:02 | NUR ---
IN TO CHECK ON PT, PT APPEARS TO BE SLEEPING. SNORING SOFTLY. RR EVEN AND UNLABORED. CALL LIGHT IN REACH.
--- NOTE | 2017-08-18 23:51 | NUR ---
IN TO CHECK ON PT, PT APPEARS TO BE SLEEPING. SNORING SOFTLY LYING ON BACK. RR EVEN AND UNLABORED. NO APPARENT DISTRESS NOTED. CALL LIGHT IN REACH.
--- NOTE | 2017-08-18 23:51 | NUR ---
PATIENT ASLEEP, DOES NOT NEED ANYTHING AT THIS TIME.
--- NOTE | 2017-08-19 01:30 | NUR ---
PT CALLED UP WITH ASSIST OF SOFTWARE DEVELOPER TO BATHROOM TOLERATED WELL. WHEN ASSESSING PAIN PT STATES PAIN "IS THERE." DISCUSSED OPTION FOR PAIN CONTROL, ICE GIVEN. WILL CONTINUE TO MONITOR. PT BACK TO BED. NO FURTHER NEEDS AT THIS TIME. CALL LIGHT IN REACH.
--- NOTE | 2017-08-19 02:05 | NUR ---
GOT PATIENT UP TO BATHROOM AND THEN BACK TO BED. MADE PATIENT NEW ICE PACKS AND PUT PILLOW UNDER LEFT ELBOW. PATIENT DOES NOT NEED ANYTHING ELSE AT THIS TIME.
--- NOTE | 2017-08-19 03:46 | NUR ---
PATIENT ASLEEP. DOES NOT NEED ANYTHING AT THIS TIME.
--- NOTE | 2017-08-19 04:01 | NUR ---
PT HAD UNEVENTFUL SHIFT, SLEPT WELL. RATES PAIN 6-7/10 WHEN UP AND 3/10 WHEN STILL. TYLENOL #3 GIVEN X2. ICE TO SHOULDER THROUGH OUT SHIFT. PT STANDBY ASSIST WITH CANE, TOLERATES WELL. SCANT BM'S NOTED ON 08/18/17, PT GIVEN SENNA. NO IV ACCESS AT THIS TIME.
--- NOTE | 2017-08-19 06:33 | NUR ---
NURSE IN ROOM.
--- NOTE | 2017-08-19 06:40 | NUR ---
PT CALLED, ASSISTED UP TO BATHROOM. PT TOLERATED WELL. PT AMBULATED TO CHAIR. AM MEDICATIONS GIVEN. ICE PLACED ON SHOULDER. PT READING THE PAPER. NO FURTHER NEEDS AT THIS TIME. CALL LIGHT IN REACH.
--- NOTE | 2017-08-19 08:35 | NUR ---
PT SITTING UP IN BED EATING BREAKFAST INDEPENDENTLY. LEFT ARM IN SLING. PT MEDICATED WITH PRN TYLENOL #3 INSTEAD OF SCHEDULED TYLENOL FOR 6/10 LEFT SHOULDER PAIN. PT ALERT AND ORIENTED. DENIES FURTHER NEEDS OR CONCERNS. CALL LIGHTS WITHIN REACH.
--- NOTE | 2017-08-19 10:52 | NUR ---
PT PETR GEORGE WITH [address].
--- NOTE | 2017-08-19 13:08 | NUR ---
PT IN CHAIR. FRESH ICE WATER AND HOT ZAHRAA.
--- NOTE | 2017-08-19 13:33 | NUR ---
PT RESTING IN BED READING BOOK. MEDICATED WITH PRN TYLENOL #3 PER REQUEST FOR 6/10 LEFT ARM PAIN. CALL LIGHT WITHIN REACH.
--- NOTE | 2017-08-19 15:49 | NUR ---
PT RESTING IN BED WATCHING A MOVIE ON HER DRAKE. DENIES NEEDS OR CONCERNS AT THIS TIME. CALL LIGHT WITHIN REACH.
--- NOTE | 2017-08-19 16:38 | NUR ---
PT SBA WITH CANE TO RESTROOM, HAD BM. AMB TO RECLINER. PERSONAL ITEMS AND CALL LIGHT WITHIN REACH.
--- NOTE | 2017-08-19 16:44 | NUR ---
UNEVENTFUL SHIFT. PT RECIEVED TYLENOL #3 FOR LEFT ARM PAIN. PT ALERT AND ORIENTED. SBA WITH CANE FOR AMB. LEFT ARM IN SLING, ICE APPLIED NEEDED. BMX2.
--- NOTE | 2017-08-19 18:59 | NUR ---
PT ATE ALL OF DINNER. SITTING UP IN RECLINER READING. CALL LIGHT WITHIN REACH.
--- NOTE | 2017-08-19 19:05 | NUR ---
REPORT RECEIVED FROM OFFGOING RN.
--- NOTE | 2017-08-19 19:32 | NUR ---
ASSISTED PATIENT CHANGE DAY CLOTHES TO NIGHT GOWN. PATIENT DID BRUSH HER TEETH AND WASH FACE AND HANDS.
--- NOTE | 2017-08-19 19:52 | NUR ---
ICE WATER REFILLED AND MADE 2 ICE PACK FOR SHOULDER.
--- NOTE | 2017-08-19 20:04 | NUR ---
PT ASSESSMENT COMPLETE. PT RATES PAIN 6-7/10 TO SHOULDER. PRN TYLENOL #3 ADMINISTERED. BRUISING PRSENT TO L SHOULDER. CMS INTACT. ARM REMAINS IN SLING, ICE PRESENT TO SITE. PT DENIES OTHER NEEDS AT THIS TIME. CALL LIGHT WITHIN REACH.
--- NOTE | 2017-08-19 22:00 | NUR ---
PT SITTING UP IN RECLINER WATCHING VIDEOS ON HER CELL PHONE. PT STATES THAT PAIN HAS "COME DOWN." DENIES NEEDS AT THIS TIME. CALL LIGHT WITHIN REACH.
--- NOTE | 2017-08-19 22:27 | NUR ---
PATIENT CALLED, WANTS TO GO TO BED FROM CHAIR. CALL LIGHT WITHIN REACH.
--- NOTE | 2017-08-19 22:30 | NUR ---
PT INITIALLY DECLINED SCHEDULED MELATONIN, STATES THAT SHE "DOES NOT NEED IT." HOWEVER, PT CALLS AND REQUESTS MELATONIN FOR INABILITY TO SLEEP AT THIS TIME. MELATONIN ADMINISTERED PT DENIES OTHER NEEDS.
--- NOTE | 2017-08-20 00:04 | NUR ---
PT RESTING IN BED WITH EYES CLOSED. RESPIRATIONS EVEN AND UNLABORED. PT APPEARS TO BE SLEEPING. CALL LIGHT WITHIN REACH.
--- NOTE | 2017-08-20 02:30 | NUR ---
PT RESTING IN BED WITH EYES CLOSED. RESPIRATIONS EVEN AND UNLABORED. PT APPEARS TO BE SLEEPING. CALL LIGHT WITHIN REACH.
--- NOTE | 2017-08-20 04:45 | NUR ---
PT RESTING IN BED WITH EYES CLOSED. RESPIRATIONS EVEN AND UNLABORED, PT APPEARS TO BE SLEEPING. NO S/SX OF DISTRESS NOTED. CALL LIGHT WITHIN PT'S REACH.
--- NOTE | 2017-08-20 05:20 | NUR ---
TYLENOL # 3 FOR PAIN X 1 EARLY IN SHIFT. PT UP AT BEDSIDE AND THEN IN CHAIR ATTEMPTING FIND COMFORTABLE POSITION TO RELIEVE PAIN. ICE TO SHOULDER. PT EVENTUALLY STATES PAIN MEDICATION HELPFUL, ABLE TO SLEEP THROUGHOUT THE SHIFT. SBA WITH FWW OR CANE. NO IV ACCESS.
--- NOTE | 2017-08-20 05:24 | NUR ---
PATIENT CALLED TO USE THE BATHROOM. STANDBY ASSISTED BACK TO BED. 2 ICE PACK MADE FOR SHOULDER. CALL LIGHT WITHIN REACH.
--- NOTE | 2017-08-20 09:30 | NUR ---
PT AWAKE IN BED. ATE ALL OF BREAKFAST. AIDE IN ROOM TO ASSIST PT WITH SHOWER. AM MEDS ADMINISTERED. RATING PAIN 5/10 LEFT ARM. ARM IN SLING. PT ALERT AND ORIENTED. SBA WITH CANE.
--- NOTE | 2017-08-20 13:04 | NUR ---
PT SITTING UP IN RECLINER. ATE ALL OF LUNCH. DENIES NEEDS OR CONCERNS AT THIS TIME. CALL LIGHT WITHIN REACH.
--- NOTE | 2017-08-20 14:57 | NUR ---
PT SLEEPING SOUNDLY IN BED. EYES CLOSED, RESP EVEN AND UNLABORED.
--- NOTE | 2017-08-20 18:00 | NUR ---
PT SBA TO RESTROOM. AMB TO RECLINER. PERSONAL BELONGINGS AND CALL LIGHT WITHIN REACH. DENIES PAIN AT THIS TIME, ICE PACKS TO LEFT ARM. CALL LIGHT WITHIN REACH.
--- NOTE | 2017-08-20 18:37 | NUR ---
PT SBA WITH CANE. LEFT ARM IN SLING WITH ICE PRN, TYLENOL AND TYLENOL #3 PRN FOR PAIN. PT HAD MULTIPLE BM'S THIS SHIFT, MIRNAIMAX HELD THIS AM. NO IV ACCESS. PT ALERT AND ORIENED, OCC FORGETFUL.
--- NOTE | 2017-08-20 19:10 | NUR ---
BEDSIDE REPORT RECEIVED FROM OFFGOING RN. PT SITTING UP IN RECLINER, DENIES NEEDS AT THIS TIME. CALL LIGHT WITHIN REACH.
--- NOTE | 2017-08-20 20:04 | NUR ---
STANDBY ASSISTED PATIENT TO THE BATHROOM AND BACK TO BED. CHANGED DAY CLOTHES TO NIGHT GOWN WITH SOME HELP. DID ORAL CARE AND WASH FACE. MADE 2 ICE PACKS FOR SHOULDER. CALL LIGHT WITHIN REACH.
--- NOTE | 2017-08-20 21:00 | NUR ---
PT ASSESSMENT COMPLETE. PT STATES THAT RESTLESS LEG SYNDROME IS BOTHERING HER, REQUESTS TO WALK AROUND ROOM. PT AMBULATING IN ROOM WITH CANE AND SBA APPROXIMATELY 4 TIMES. PT SITTING IN RECLINER WHEN FINISHED WALKING. DENIES NEEDS AT THIS TIME. ICE TO SHOULDER, IMMOBILIZER IN PLACE. CALL LIGHT IN PT'S LAP.
--- NOTE | 2017-08-20 22:05 | NUR ---
PATIENT CALLED TO USE THE BATHROOM.SAW ARM SLING UNDONE, PATIENT STATED I DID BECAUSE I WANT TO. I HOOKED IT BACK. PATIENT IS BACK IN BED. CALL LIGHT IS WITHIN REACH.
--- NOTE | 2017-08-21 00:09 | NUR ---
PT SITTING UP IN RECLINER, RESTING WITH EYES CLOSED. RESPIRATIONS EVEN AND UNLABORED. PT SNORING AUDIBLY. PT APPEARS TO BE SLEEPING. CALL LIGHT IN PT'S LAP.
--- NOTE | 2017-08-21 01:50 | NUR ---
PT INFORMS ORNAMENT MAKER HAND THAT SHE IS HAVING INCREASED ARM PAIN AFTER UP USING THE BATHROOM. PT RATES PAIN TO L SHOULDER 10/10. PRN TYLENOL # 3 ADMINISTERED. PT CONTINUES TO SIT IN RECLINER, STATES THAT IT IS MORE COMFORTABLE FOR HER ARM. CALL LIGHT IS IN PT'S LAP, PT DENIES NEEDS AT THIS TIME.
--- NOTE | 2017-08-21 01:54 | NUR ---
PATIENT CALLED, USED THE BATHROOM STANDBY ASSIST AND BACK TO THE CHAIR. 2 ICE PACK MADE. CALL LIGHT WITHIN REACH.
--- NOTE | 2017-08-21 03:00 | NUR ---
PT SITTING UP IN RECLINER WATCHING VIDEO ON HER TABLET. PT STATES THAT PAIN IS DECREASED TO 5/10, STATES THAT "THE EDGE IS OFF", AGREES THAT PAIN IS IMPROVED FROM 10/10. PT STATES THAT SHE DOES NOT FEEL TIRED, WOULD LIKE TO CONTINUE SITTING UP IN RECLINER. DENIES OTHER NEEDS. CALL LIGHT PRESENT IN PT'S LAP.
--- NOTE | 2017-08-21 03:59 | NUR ---
ASSISTED STANDBY PATIENT GOING TO BED FROM CHAIR. CALL LIGHT WITHIN REACH.
--- NOTE | 2017-08-21 05:30 | NUR ---
PT CALLS, REQUESTS ASSISTANCE TO THE BATHROOM. PT STATES THAT PAIN HAS INCREASED AGAIN, RATES 07/18. TO L ARM. PT STATES THAT SHE IS UNABLE TO TAKE NARCOTIC MEDICATION DUE TO IT "MAKING HER CRAZY." REMINDECD PT THAT SHE HAD TYLENOL #3 @ APPROXIMATELY 0200, AND WILL HAVE MORE AVAILABLE AT 0800. PT STATES UNDERSTANDING. PT REQUESTS TO SIT IN CHAIR BECAUSE IT IS "EASIER TO GET UP", ICE PACKS PRESENT TO SHOULDER. PT PROPPED WITH PILLOWS, CHAIR RECLINED SO PT MAY ATTEMPT TO SLEEP. PT DENIES NEEDS AT THIS TIME. CALL LIGHT IN PT'S LAP.
--- NOTE | 2017-08-21 05:59 | NUR ---
PT RESTED OFF AND ON THROUGHOUT SHIFT. PT REPORTS NOT HAVING SLEPT MUCH DESPITE PERIODS OF SLEEPING. PAIN IS INCREASED THIS SHIFT. PT RATES BETWEEN 5-10/10 TO L SHOULDER. ICE AND SLING TO SHOULDER. TYLENOL 3 X 1. 1 PA WITH CANE. UO QS. NO BM THIS SHIFT. NO IV ACCESS. PT FORGETFUL AT TIMES.
--- NOTE | 2017-08-21 07:47 | NUR ---
helped pt get into chair from bathroom, she voided 150. got her a warm blanket and also fresh ice water
--- NOTE | 2017-08-21 08:15 | NUR ---
PATIENT SHOWERED WITH ONE PERSON ASSIST. OREAL CARE DONE. PATIENT BACK TO CHAIR. FRESH ICE WATER GIVEN. CALL BUTTON IN REACH. NO OTHER NEEDS AT THIS TIME.
--- NOTE | 2017-08-21 09:05 | NUR ---
PT AWAKE, SITTING UP IN RECLINER FIXING HER HAIR. PT SHOWERED AND DRESSED WITH ASSITANCE OF AIDE AND OT THIS AM. PT MEDICATED WITH SCHEDULED TYLENOL, RATES LEFT ARM PAIN 5/10, ICE PACKS AND SLING IN PLACE. PT ALERT AND ORIENTED THIS AM. CALL LIGHT WITHIN REACH.
--- NOTE | 2017-08-21 11:45 | NUR ---
PT SITTING UP IN BED VISITING WITH SON. DENIES NEEDS OR CONCERNS. CALL LIGHT WITHIN REACH.
--- NOTE | 2017-08-21 13:13 | NUR ---
PATIENT SITTING UP IN CHAIR TALKING TO SON. FRESH ICE WATER GIVEN. NO OTHER NEEDS AT THIS TIME.
--- NOTE | 2017-08-21 13:58 | NUR ---
PT SITTING UP CHATTING WITH VISITOR. DENIES NEEDS OR CONCERNS. CALL LIGHT WITHIN REACH.
--- NOTE | 2017-08-21 14:39 | NUR ---
PT RESTING IN BED-KNOWS P.T. WILL BE IN SOON. SHE MENTIONED HER SONS WERE IN AND TRYING TO PLAN FOR HER DC HOME. PT MENTIONED THAT SHE IS CONSIDERING ASSISTED LIVING, BUT WOULD MISS LIFE ON THE FARM-IT IS ALL SHE HAS EVER KNOWN. GAVE IDEAS ON THINGS THAT MIGHT BE TRADE OFF'S. PRAYED PRAYER OF BLESSING AND WILL CONTINUE TO FOLLOW
--- NOTE | 2017-08-21 16:05 | NUR ---
PT SBA WITH CANE TO AMB TO RESTROOM. PT SLIGHTLY UNSTEADY ON FEET. AMB TO RECLINER. CALL LIGHT WITHIN REACH. SON AT BEDSIDE.
--- NOTE | 2017-08-21 17:42 | NUR ---
ACCOUNT RESOLUTION ANALYST SPOKE WITH PATIENTS SON, PLAN IS FOR A CARE CONFERENCE TOMORROW AT 3PM TO DISCUSS DISCHARGE PLAN.
--- NOTE | 2017-08-21 18:14 | NUR ---
PATIENT SITTING UP IN CHAIR WATCHING A MOVIE. NO NEEDS AT THIS TIME.
--- NOTE | 2017-08-21 19:05 | NUR ---
BEDSIDE REPORT RECEIVED FROM OFFGOING RN. PT SITTING UP IN RECLINER.
--- NOTE | 2017-08-21 19:56 | NUR ---
ASSISTED PATIENT CHANGE DAY CLOTHES TO NIGHT GOWN WITH A LITTLE HELP. PM CARE, ORAL CARE DONE BY PATIENT. ICE WATER REFILLED. 2 ICE PACKS MADE FOR LEFT SHOULDER. PATIENT IS IN BED. CALL LIGHT IS WITHIN REACH.
--- NOTE | 2017-08-21 21:15 | NUR ---
PT UP TO USE THE BATHROOM. PT REPORTS INCREASED PAIN, RATES 10/10. PT STATES THAT GETTING UP OUT OF BED CAUSES INCREASED PAIN. PRN TYLENOL #3 ADMINISTERED. PT ASSESSMENT COMPLETE. BRUISING CONTINUES TO BE PRESENT TO L ARM/SHOULDER. CMS INTACT, PT ABLE TO WIGGLE FINGERS, SQUEEZE WRITES HAND, SKIN WARM DRY AND INTACT. PT ASSISSTED BACK TO BED. DENIES OTHER NEEDS AT THIS TIME. CALL LIGHT WITHIN REACH.
--- NOTE | 2017-08-21 23:14 | NUR ---
PT UP TO USE THE BATHROOM, STATES THAT PAIN IS MUCH IMPROVED AFTER PRN. PT ASSISTED BACK TO BED. DENIES OTHER NEEDS ATTHIS TIME. CALL LIGHT IN PT'S LAP.
--- NOTE | 2017-08-22 01:30 | NUR ---
PT RESTING IN BED WITH EYES CLOSED. RESPIRATIONS EVEN AND UNLABORED. PT APPEARS TO BE SLEEPING. CALL LIGHT WITHIN REACH.
--- NOTE | 2017-08-22 02:12 | NUR ---
PT UP TO USE THE BATHROOM WITH CANE AND 1 PA. DENIES FURTHER NEEDS. CALL LIGHT IN LAP, WITHIN PT'S REACH.
--- NOTE | 2017-08-22 03:43 | NUR ---
PT RESTING IN BED WITH EYES CLOSED. RESPIRATIONS EVEN AND UNLABORED, NO S/SX OF DISTRESS. PT SNORING AUDIBLY. CALL LIGHT WITHIN REACH.
--- NOTE | 2017-08-22 04:09 | NUR ---
PT REQUESTS PRN PAIN MEDICATION FOR PAIN TO L SHOULDER, 5-03/18. TYLENOL #3 ADMINISTERED.
--- NOTE | 2017-08-22 05:15 | NUR ---
PT RESTED OFF AND ON THROUGHOUT SHIFT. TYLENOL #3 X 2 THIS SHIFT. ICE AND SLING TO L SHOULDER. 1 PA WITH CANE. UO QS. NO BM THIS SHIFT. NO IV ACCESS. CARE CONFERENCE WITH LEE TODAY @ [id number].
--- NOTE | 2017-08-22 07:39 | NUR ---
PT SITTING UP IN RECLINER, ALERT AND ORIENTED. NO DISTRESS NOTED. PT HAS NO REQUESTS.
--- NOTE | 2017-08-22 11:54 | NUR ---
PT WAS RESTING IN BED-SHE MENIONED SHE NEEDED TO REST. SHE HAD A LONG P.T. SESSION THIS MORNING. GOT TO WALK OUTSIDE, AND THERAPIST COMMENTED ON HOW SHE CAN BECOME DISTRACTED WHEN SHE WALKS. PT ADMITTED THAT'S PROBABLY WHAT HAPPENED WHEN SHE FELL. VERY PLEASANT, MENTIONED THAT A CARE CONF IS PLANNED FOR 3PM TODAY. HER FAMILY WILL BE PRESENT. EXTENDED A BLESSING WILL CONTINUE TO FOLLOW
--- NOTE | 2017-08-22 12:07 | NUR ---
PT REQUEST WHEEL CHAIR TO GO DOWN TO [place] TO HAVE LUNCH WITH GUESTS. PT OFF THE UNIT AT THIS TIME WITH GUESTS.
--- NOTE | 2017-08-22 15:05 | NUR ---
CARE AREA MEETING...STAFF IN ROOM , MED STUDENT, JAK BOWLING TEACHER, MALIK SAND CAR WORKER NURSE, DWAYNE PHYSICAL THERAPIST, PRIMARY RN. PATIENT AND THREE SONS IN ROOM MIGUEL, MICHAELA, AND GORDON. STAFF DISCUSSED CONTINUED CARE PLAN FOR DISCHARGE AND OPTIONS AVAILABLE FOR PATIENT LIZZIE, AND CONTINUED P.T./O.T., THEN TO FOLLOW UP WITH OUTPT.
--- NOTE | 2017-08-22 15:15 | NUR ---
CARE CONFERENCE ATTANDANCE: PATIENT AND 3 ADULT SONS STAFF: DR GEE, MYSELF, MORTGAGE BRANCH MANAGER STEVO, EYEWEAR CONSULTANT AVRIL GAN PHYSICAL THERAPIST, MEDICAL STUDENT DISCUSSION REGARDING PATIENTS DIAGNOSIS AND PLAN. PT STATES SHE WILL LIKELY BE ABLE TO DISCHARGE PATIENT TO OUTPATIENT PLAN SUCH HOME HEALTH. SHE ALSO GAVE UPDATE FROM OT (WHO COULDN'T MAKE CONFERENCE). OT STATES PATIENT IS STILL UNABLE TO PERFORM ALL ADL'S ON OWN. SHE STATES THAT SHE HAS IMPROVED, BUT IT IS UNLIKELY SHE WILL BE ABLE TO DO ALL ADLS AT THIS TIME UNTIL ARM IS HEALED. PATIENT IS IN AGREEMENT THAT SHE TRIES VERY HARD, BUT THAT SHE IS UNABLE TO USE LEFT ARM ENOUGH TO DO THINGS ON OWN. SHE IS AGREEING THAT IT IS A SAFETY CONCERN FOR HER TO BE HOME ALONE. SHE STATES SHE IS NOT OPPOSED TO GOING TO SNF IN [place], BUT SHE WOULD LIKE TO TRY GOING HOME WITH HELP. HER SONS STATE THEY HAVE ONE CAREGIVER ARRANGED TO STAY WITH PATIENT AT NIGHT AND ARE WORKING ON ANOTHER FAMILY MEMBER TO BE AVAILABLE DURING DAYS ALONG WITH THEMSELFS. THEY STATE [place] AND THEY ARE ACCESSIBLE EASILY DURING THE DAY. DISCUSSED THAT HOME HEALTH PT/OT CAN SEE PATIENT IF ORDERED. ALSO DISCUSSED THAT IF SHE GOES HOME AND FAILS, SHE HAS 30 DAYS THAT SHE CAN GO TO SNF BASED ON THIS ADMISSION. PATIENT AND FAMILY WOULD LIKE TO TALK ABOUT THIS TONIGHT AND UPDATE US TOMORROW. ALL ARE IN AGREEMENT WITH PLAN.
--- NOTE | 2017-08-22 17:12 | NUR ---
PT HAS BEEN UP [facility] TODAY TWICE. CARE MEETING TODAY REPORTS FROM OCCUPATIONAL THERAPY IS THAT PATIENT HAS NOT MEET BENCH CHOW TO DISCHARGE HOME ALONE SAFELY. PT FAMILY GIVEN OPTIONS AND PLAN TO DISCUSS OPTIONS AND REPORT BACK. PT REPORTS MORE PAIN AT NIGHT. PT HAS BEEN UP IN RECLINER FOR ALL MEALS, AND IS STANDBY ASSIST TO BATHROOM.
--- NOTE | 2017-08-22 19:45 | NUR ---
REPORT RECEIVED FROM TEAR DOWN MAN, PT CARE ASSUMED BY THIS QUAIL FARMER.
--- NOTE | 2017-08-22 21:58 | NUR ---
STANDBY ASSISTED PATIENT CHANGING DAY CLOTHES TO NIGHT GOWN. PATIEN ASKED A LITTLE HELP STATED I NEED HELP TONIGHT BECAUSE I AM SO TIRED. PATIENT IS IN BED. WARM PACK ON LEFT SHOULDER REQUESTED STATED SHE PREFERS WARM PACK TONIGHT. CALL LIGHT IS WITHIN REACH.
--- NOTE | 2017-08-22 22:16 | NUR ---
PT LYING IN BED WITH EYES OPEN. SHE STATES THAT PAIN 7/10, INCREASED SINCE EARLIER. SHE BELIEVES THIS IS DUE TO WAITING TO GO TO BED. PT DISCUSSED WORKING HARD WITH PT TODAY, POSSIBLITY OF ARM SORENESS D/T WORKING WITH PT TODAY DISCUSSED. PT AGREES. WARM COMPRESS TO ARM, PT STATES THAT ICE WAS MAKING ARM SORE. SLING REMAINS IN PLACE. BRUISING PRESENT TO ARM. PT ABLE TO WIGGLE FINGERS, SQUEEZE WRITERS HANDS, PULSES PRESENT, EXTREMITY WARM. PT DENIES OTHER NEEDS AT THIS TIME. CALL LIGHT WITHIN REACH.
--- NOTE | 2017-08-22 23:18 | NUR ---
PT UTILIZES CALL LIGHT, INFORMS MANAGER FINANCE THAT PAIN CONTINUES TO L SHOULDER. WARM COMPRESS IN PLACE TO SHOULDER, PER PT'S REQUEST. EDUCATION REGARDING FREQUENCY OF TYLENOL # 3 REINFORCED. PT STATES UNDERSTANDING. PT VERBALIZES THAT SHE IS FEELING ANXIOUS IN GENERAL, SPECIFICALLY "ABOUT GOING HOME", PT WONDERS IF SHE WILL HAVE "TYLENOL WITH CODIENE WHEN SHE GOES HOME". PT REQUESTS TO GET UP TO CHAIR SHE FEELS THIS WILL HELP WITH PAIN HOSPITALIST NOTIFIED OF PT'S REPORTS OF PAIN.
--- NOTE | 2017-08-22 23:28 | NUR ---
PATIENT IS UP IN THE CHAIR STATED WILL BE WATCHING TV. WARM BLANKET GIVEN. WARM PACK ON LEFT SHOULDER. CALL LIGHT WITHIN REACH.
--- NOTE | 2017-08-23 01:50 | NUR ---
PT UTILIZES CALL LIGHT. REQUESTS TO USE THE BATHROOM. PT SITTING UP IN CHAIR. STATES THAT HER PAIN IS "PRETTY MUCH GONE, ABOUT A 3-4/10." PT ASSISTED TO THE BATHROOM AND BACK TO BED. PT DENIES OTHER NEEDS AT THIS TIME. CALL LIGHT WITHIN REACH.
--- NOTE | 2017-08-23 03:56 | NUR ---
PT RESTING IN BED WITH EYES CLOSED. RESPIRATIONS EVEN AND UNLABORED, NO S/SX OF DISTRESS NOTED. PT APPEARS TO BE SLEEPING. CALL LIGHT WITHIN REACH.
--- NOTE | 2017-08-23 05:07 | NUR ---
Pt resting in bed with eyes closed, respirations even and unlabored. Pt snoring audibly. Pt appears to be sleeping. Call light within reach.
--- NOTE | 2017-08-23 05:08 | NUR ---
PT ANXIOUS THIS SHIFT, MANY QUESTIONS ABOUT POC, MEDICATIONS, ETC. O2 @ 2LPM VIA NC. DYSPNEA ON EXERTION. DRY PRODUCTIVE COUGH. SBA TO AMBULATE. IV SL. UO QS.
--- NOTE | 2017-08-23 05:15 | NUR ---
PT UTILIZES CALL LIGHT, REQUESTS TO USE THE BATHROOM. AMBULATES TO CHAIR WITH SBA AND FWW WHEN FINISHED. POSITIONED WITH PILLOWS. BEDSIDE TABLE NEXT TO PT. PT DENIES OTHER NEEDS AT THIS TIME. STATES THAT SHE WAS ABLE TO SLEEP FOR A WHILE IN BED, AND THAT PAIN WAS WELL CONTROLLED. CALL LIGHT WITHIN REACH.
--- NOTE | 2017-08-23 05:39 | NUR ---
PT RESTED THROUGHOUT SHIFT AFTER TYLENOL #3 X1. WARM COMPRESS TO L SHOULDER, SLING IN PLACE TO IMMOBILIZE. NO BM THIS SHIFT. UO QS. 1 PA WITH CANE. NO IV ACCESS. PT FORGETFUL AT TIMES.
--- NOTE | 2017-08-23 08:35 | NUR ---
Patient assisted with shower and is sitting up in the chair at this time.
--- NOTE | 2017-08-23 09:03 | NUR ---
occupational therapy in room. patient working on getting jacket on by herself. patient doing well. needing encouragment. pain okay at this time. discharge planning in room to talk about plan for discharge. pateint stating jose caregiver has been hired. her children have been getting house ready. plan to possible discharge tomorrow if sons have house ready.
--- NOTE | 2017-08-23 09:27 | NUR ---
MEDICATIONS GIVEN. LIDOCANE PATCH PLACED ON L SHOULDER. PATIENT CONTINUES TO WORK WITH OCCUPATIONAL THERAPY.
--- NOTE | 2017-08-23 10:25 | NUR ---
pts vitals taken at this time. I&O's charted as well. pt assisted to the bathroom and would like to go back to bed to take a nap until lunch time. No other requests at this time.
--- NOTE | 2017-08-23 10:31 | NUR ---
patient called to use the rest room. assisted by riding silks custodian. tolerating transfer well with can. assisted back to chair. vitals taken.
--- NOTE | 2017-08-23 11:09 | NUR ---
patient working with pt. tolerating well at this time. plan to work with pt outside and in pt room.
--- NOTE | 2017-08-23 12:00 | NUR ---
MET WITH PATIENT AND SON. SHE AND HE STATE SHE WOULD LIKE TO TRY GOING HOME AT DISCHARGE. SON STATES THEY HAVE CAREGIVER ARRANGED FOR EVENINGS AND ALL NIGHT. HE AND HIS BROTHERS AND FAMILIES WILL HELP HER DURING THE DAY. PLAN FOR HOME HEALTH ALSO FOR PT/OT TO COME TO HOME. QUESTIONS ANSWERED. SON STATES HE OR ONE OF HIS BROTHERS WILL COME TOMORROW FOR ALL DISCHARGE INSTRUCTIONS. ONE OF THEM WILL BE HERE BY 9AM.
--- NOTE | 2017-08-23 13:01 | NUR ---
pt assisted out of the bathroom and back into bed. No other requests at this time.
--- NOTE | 2017-08-23 13:34 | NUR ---
VISITED WITH PT SHE WAS WALKING WITH P.T. ENCOURAGED HER TO STAY FOCUSED, SHE SMILED AND KEPT WALKING AND FOLLOWING DWAYNE'S INSTRUCTIONS. WILL CONTINUE TO FOLLOW
--- NOTE | 2017-08-23 15:48 | NUR ---
PATIENT SLEEPING. RR EVEN AND UNLABORED. HOB ELEVATED.SLING IN PLACE.
[2017-08-23] MEDS ORDERED: MELATONIN3 MG PO (16:02)
[2017-08-23] MEDS ORDERED: ACETAMINOPHEN-1 EAC1 PO (16:02)
[2017-08-23] MEDS ORDERED: SENNA-TIME S T1 EACH PO (16:02)
--- NOTE | 2017-08-23 16:33 | NUR ---
ASSISTED TO THE BR. PATIENT WAS ABLE TO TRANSFER SELF WITH A STBY ASSIT. VOIDING WELL ASSISTED BACK TO BED.
--- NOTE | 2017-08-23 16:40 | NUR ---
patient called requesting restless leg medication. asked dr. renteria if okay for giving early. okay to give order was given. patient resting in bed. stating that legs are starting to hurt.
--- NOTE | 2017-08-23 17:15 | NUR ---
pt sittin up in chair visiting with family at this time. I&O's charted.
--- NOTE | 2017-08-23 17:17 | NUR ---
PATIENT AMBULATING IN RIOS WITH GRAND DAUGHTER. TOLERATING WELL.
--- NOTE | 2017-08-23 17:17 | NUR ---
PATIENT HAS HAD GOOD DAY. WORKING WITH ALL OF THERAPIES. PATIENT IMPROVING. FAMILY STATING THAT ALL THINGS ARE TOGETHER AT HOME. HAVE CAREGIVER DURING THE NIGHT, AND FAMILY THERE DURING THE DAY, FOLLOW APPOINTMENTS MADE. PLAN TO DISCHARGE TOMORROW.
--- NOTE | 2017-08-23 19:05 | NUR ---
REPORT RECVD FROM MARISABEL SAUCEDO. PT AWAKE TALKING WITH FAMILY. PT NOTED TO BE A 1 PERSON TO INDEPENDENT IN ROOM. REPORT TO HOLD STOOL SOFTNER FOR MULTIPLE BM'S ON SHIFT TODAY. NO FURTHER NEEDS AT THIS TIME. CALL LIGHT IN REACH.
--- NOTE | 2017-08-23 19:54 | NUR ---
PATIENT UP IN CHAIR. ASSISTED HER IN GETTING READY FOR BED. PATIENT WENT TO BATHROOM AND IS NOW IN BED. WHITEBOARD UPDATED, ROOM TIDIED. PATIENT DOES NOT NEED ANYTHING ELSE AT THIS TIME.
--- NOTE | 2017-08-23 22:20 | NUR ---
PT IN BED WATCHING TV. CHANGED OUT GREEN SHEET AND PATIENT DID NOT NEED ANYTHING AT THIS TIME.
--- NOTE | 2017-08-23 23:55 | NUR ---
IN TO CHECK ON PT, PT APPEARS TO BE SLEEPING IN CHAIR. NO APPARENT DISTRESS NOTED. RR EVEN AND UNLABORED. CALL LIGHT IN REACH.
--- NOTE | 2017-08-24 00:17 | NUR ---
PATIENT ASLEEP, DOES NOT NEED ANYTHING AT THIS TIME.
--- NOTE | 2017-08-24 01:11 | NUR ---
PT UP TO BATHRROM WITH ASSIST FROM TRIAGE RN. PT C/O L SHOULDER PAIN. PT ADVISED NOT DUE FOR PAIN MEDICATION UNTIL 0230. PT ASSISTED BACK TO BED. L ARM ELEVATED ON PILLOW AND WARM PACK GIVEN FOR PAIN. WILL CONTINUE TO MONITOR PT. CALL LIGHT IN REACH.
--- NOTE | 2017-08-24 02:09 | NUR ---
PATIENT DOING WELL. DOES NOT NEED ANYTHING AT THIS TIME.
--- NOTE | 2017-08-24 03:01 | NUR ---
PT CALLED, ASSISTED UP TO BATHROOM. PT TOLERATED WELL WITH STANDBY ASSIST. PT BACK TO BED. NO FURTHER NEEDS AT THIS TIME. CALL LIGHT IN REACH.
--- NOTE | 2017-08-24 04:35 | NUR ---
PT HAS HAD UNEVENTFUL SHIFT, SLEPT INTERMITTENTLY. PT GIVEN TYLENOL #3 FOR 6-7/10 PAIN IN L SHOULDER. STOOL SOFTNER HELD FOR MULTIPLE BM'S NOTED ON 08/23/17. NO IV ACCESS. PLAN TO DISCHARGE TODAY.
--- NOTE | 2017-08-24 05:17 | NUR ---
PT CALLED, IN TO SEE PT. ASSISTED UP TO CHAIR PER REQUEST, PT TOLERATED WELL. PT WATCHING TV. NO FURTHER NEEDS AT THIS TIME. CALL LIGHT IN REACH.
--- NOTE | 2017-08-24 07:33 | NUR ---
RECIEVED REPORT FROM PAID SEARCH SPECIALIST NURSE. PT RESTING IN BED. WALLACE NOTED. DENIES NEEDS. CALL LIGHT IN REACH.
--- NOTE | 2017-08-24 08:07 | NUR ---
PT SITTING UP IN CHAIR EATING BREAKFAST. RATES PAIN IN HER L UPPER ARM 01/16, STATES IT FEELS "ACHEY." SCHEDULED TYLENOL ADMINISTERED. LIDODERM PATCH APPLIED TO L UPPER ARM. PT DENIES FURTHER NEEDS. CALL FARMER IN REACH.
--- NOTE | 2017-08-24 08:18 | NUR ---
PT AWAKE IN BED. FRESH ICE WATER. SET UP AND HELPED HER W/SHOWER. AND AM CARE. COMPLETE LINEN CHANGE.
--- NOTE | 2017-08-24 09:29 | NUR ---
PT RESTING IN CHAIR. SBA W CANE TO BATHROOM. ORAL CARE PERFORMED INDEPENDENTLY. PHARMACIST IN TO DISCUSS D/C MEDICATIONS. PT DENIES NEEDS. BACK TO CHAIR WITH CALL FARMER IN REACH.
--- NOTE | 2017-08-24 09:31 | NUR ---
PT STILL RATES L UPPER ARM/SHOULDER 01/16. STATES IT FEELS BETTER THAN IT DID THIS MORNING. DENIES THE NEED FOR PAIN MEDICATION AT THIS TIME.
--- NOTE | 2017-08-24 10:45 | NUR ---
PT REQUESTED FOR PAIN MEDICATION BEFORE SHE IS D/C. REVIEWED D/C PAPERWORK WITH PT AND FAMILY MEMBER. ALL QUESTIONS ANSWERED. DENIES FURTHER NEEDS.
--- NOTE | 2017-08-24 13:45 | NUR ---
PT KATIE'D. VISITED ON HER WAY OUT-SEEMED EXCITED, BUT I COULD ALSO SEE SOME ANXIOUSNESS IN HER EYES. SHE THANKED ME FOR VISITING, GOD BLESS HER
--- NOTE | 2017-08-24 17:30 | NUR ---
CLINICALS AND HOME HEALTH ORDER FAXED TO [facility] DEPARTMENT. FAX CONFIRMATION RECEIVED.
[2017-08-25] MEDS ORDERED: TYLENOL WITH C1 EACH PO (20:10)
== END 2017-08-24 11:00 | disposition home or self-care (01) | DRG 948 ==
LOC: MS 09:30
PROVIDERS: ADMIT Internal Medicine
DX: R53.81 Other malaise (principal); E03.9 Hypothyroidism, unspecified; F41.9 Anxiety disorder, unspecified; G25.81 Restless legs syndrome; S42.92XD Fracture of left shoulder girdle, part unspecified, subsequent encounter for fracture with routine healing
CPT/HCPCS: 73060; 94668; 94760; 97110; 97112; 97116; 97163; 97165; 97530; 97535; J1650

== ENCOUNTER 2017-08-25 19:57 | Emergency (ER) | payer MEDICARE, BC ==
[~2017-08-25] VITALS: Ht 177.8 cm; Wt 57.6 kg
[~2017-08-25 19:57] MED LIST changes: +ACETAMINOPHEN-1 EAC1 PO; +MELATONIN3 MG PO; +SENNA-TIME S T1 EACH PO
[2017-08-25] MEDS ORDERED: TYLENOL WITH C1 EACH PO (20:10)
--- NOTE | 2017-08-26 19:02 | EKG ---
[facility] [address] [facility] [place] [address] Signed Normal sinus rhythm Low voltage QRS Borderline ECG When compared with ECG of 12-AUG-2017 18:59, premature atrial complexes are no longer present Confirmed by CHEMO GEE MD ([id number]) on 08/26/2017 7:02:44 PM Electronically Signed By: CHEMO GEE MD 08/26/[id number] PATIENT NAME: HANGJAIngrid SAAVEDRA Electrocardiogram DATE OF : 36 PHYSICIAN: CHEMO GEE MD REPORT #: [id number] REPORT IS CONFIDENTIAL AND NOT TO BE RELEASED WITHOUT AUTHORIZATION
== END 2017-08-25 22:55 | disposition short-term general hospital (02) ==
LOC: ED 19:57
DX: I44.2 Atrioventricular block, complete (principal); R55 Syncope and collapse; E03.9 Hypothyroidism, unspecified; F41.9 Anxiety disorder, unspecified; Z90.49 Acquired absence of other specified parts of digestive tract; Z90.710 Acquired absence of both cervix and uterus; Z79.899 Other long term (current) drug therapy
CPT/HCPCS: 80053; 83735; 84484; 85025; 85610; 85730; 93005; 93010; 96374; 99285; J2405

== ENCOUNTER 2018-06-10 18:57 | Emergency (ER) | payer MEDICARE, BC ==
[~2018-06-10] VITALS: Ht 177.8 cm; Wt 57.6 kg
[~2018-06-10 18:57] MED LIST changes: +TYLENOL WITH C1 EACH PO
[2018-06-10] MEDS ORDERED: FAMOTIDINE20 MG PO (19:47)
[2018-06-10] MEDS ORDERED: REGLAN10 MG PO (22:19)
--- NOTE | 2018-06-11 16:05 | EKG ---
[facility] [address] [facility] [place] [address] Signed Sinus rhythm with premature atrial complexes Low voltage QRS Borderline ECG When compared with ECG of 25-AUG-2017 20:04, premature atrial complexes are now present Confirmed by JACKY AYERS DO ([id number]) on 06/11/2018 4:05:02 PM Electronically Signed By: JACKY AYERS DO 06/11/18 1605 PATIENT NAME: JA MAURICIO Electrocardiogram DATE OF : 36 PHYSICIAN: JACKY AYERS DO REPORT #: [id number] REPORT IS CONFIDENTIAL AND NOT TO BE RELEASED WITHOUT AUTHORIZATION
== END 2018-06-10 22:53 | disposition home or self-care (01) ==
LOC: ED 18:57
DX: R55 Syncope and collapse (principal); Z88.5 Allergy status to narcotic agent; Z79.899 Other long term (current) drug therapy
CPT/HCPCS: 71045; 80053; 81001; 84484; 85025; 93005; 93010; 96374; 99285; G0480; J2405; J7030